=== PATIENT | male | born 1970 | race Caucasian/White ===

== ENCOUNTER 2018-04-20 05:33 | Day surgery (SDC) | payer OTHER ==
[2018-04-20 06:22] LABS: ADD MAN DIFF? NO
[2018-04-20 06:24] LABS: BASOPHILS % 0.7 % (0.0-2.0); EOSINOPHILS # 0.3 10^3/ul (0.0-0.5); EOSINOPHILS % 4.5 % (0.0-7.0); HEMOGLOBIN 13.3 g/dl (14.0-18.0); LYMPHOCYTES # 1.8 10^3/ul (0.8-2.9); LYMPHOCYTES % 30.3 % (15.0-51.0); MEAN CORPUSCULAR HEMOGLOBIN 27.6 pg (29.0-33.0); MEAN CORPUSCULAR HGB CONC 31.7 g/dl (32.0-37.0); MEAN CORPUSCULAR VOLUME 87.1 fl (82.0-101.0); MEAN PLATELET VOLUME 11.2 fl (7.4-10.4); MONOCYTE # 0.7 10^3/ul (0.3-0.9); MONOCYTES % 11.6 % (0.0-11.0); NEUTROPHIL # 3.1 10^3/ul (1.6-7.5); NEUTROPHILS % 52.6 % (39.0-77.0); PLATELET COUNT 172 10^3/UL (140-415); RED BLOOD COUNT 4.82 10^6/ul (4.70-6.10); RED CELL DISTRIBUTION WIDTH 12.7 % (11.5-14.5)
[2018-04-20 06:24] LABS: WHITE BLOOD COUNT 5.8 10^3/ul (4.8-10.8)
[2018-04-20 06:55] LABS: ANION GAP 7 (5-13); CALCIUM 9.5 mg/dl (8.4-10.2); CARBON DIOXIDE 28 mmol/L (21-31); CHLORIDE 108 mmol/L (97-110); CREATININE 0.93 mg/dl (0.61-1.24); Estimated GFR > 60 mL/min (>60); GLUCOSE 184 mg/dl (70-220); POTASSIUM 4.1 mmol/L (3.5-5.1); SODIUM 143 mmol/L (135-144)
[2018-04-20 07:00] LABS: INR 0.86; PROTIME 11.8 Sec (11.9-14.9); PT RATIO 0.9
[2018-04-20 07:03] LABS: BLOOD UREA NITROGEN 24 mg/dl (7-20)
[2018-04-20] MEDS ORDERED: IODIXANOL LOCM 100 ML BTL (07:08)
[2018-04-20] MEDS ORDERED: LIDOCAINE 2% (MDV) 20 ML INJ (07:08)
[2018-04-20] MEDS ORDERED: MIDAZOLAM 1 MG/ML 2 ML INJ (07:09)
[2018-04-20] MEDS ORDERED: NITROGLYCERIN (IC) 100 MCG/ML INJ (07:09)
[2018-04-20] MEDS ORDERED: VERAPAMIL 5 MG INJ (07:09)
[2018-04-20] MEDS ORDERED: HEPARIN 1000 UNITS/ML 10 ML INJ (07:09)
[2018-04-20] MEDS ORDERED: FENTAnyl 50 MCG/ML VIAL (07:10)
[2018-04-20] MEDS: SOD CHLORIDE 0.9% 1,000 ML IV (08:19)
== END 2018-04-20 11:37 | disposition home or self-care (01) ==
LOC: CCL 05:33 → SDS 05:33 → CCL 11:37
DX: I25.10 Atherosclerotic heart disease of native coronary artery without angina pectoris (principal); E78.5 Hyperlipidemia, unspecified; E11.9 Type 2 diabetes mellitus without complications
CPT/HCPCS: 80048; 82962; 85025; 85610; 93005; 93454